=== PATIENT | male | born 1960 | race Hispanic/Latino ===

== ENCOUNTER → 2023-08-23 | Outpatient (CLI) | payer OTHER ==
[~2023-08-23] MED LIST: GADOTERATE MEGLUMINE 10 MMOL/20 ML VIAL IV ONE
== END | disposition home or self-care (01) ==
LOC: RAH 10:00
PROVIDERS: ATTEND Family Medicine
DX: M47.26 Other spondylosis with radiculopathy, lumbar region (principal); M41.86 Other forms of scoliosis, lumbar region; M43.17 Spondylolisthesis, lumbosacral region; M51.27 Other intervertebral disc displacement, lumbosacral region; M48.07 Spinal stenosis, lumbosacral region; R53.1 Weakness; M51.16 Intervertebral disc disorders with radiculopathy, lumbar region
CPT/HCPCS: 72158; A9575

== ENCOUNTER 2024-01-18 18:51 | Emergency (ER) | payer OTHER ==
[~2024-01-18] VITALS: Ht 165.1 cm; Wt 81.6 kg
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
[2024-01-18] MEDS ORDERED: METH-662 PO (19:57)
[2024-01-18] MEDS ORDERED: KETO10TA2 PO (19:57)
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
[2024-01-18] MEDS: traMADol HCL 50 MG TABLET PO ONE (20:12)
[2024-01-18 20:15] VITALS: BP 158/96; PULSE 78; RESP 18; TEMP 98.1; O2SAT 98
== END 2024-01-18 20:20 | disposition home or self-care (01) ==
LOC: EDH 18:51
DX: S39.012A Strain of muscle, fascia and tendon of lower back, initial encounter (principal); S16.1XXA Strain of muscle, fascia and tendon at neck level, initial encounter; E11.9 Type 2 diabetes mellitus without complications; I10 Essential (primary) hypertension; V89.2XXA Person injured in unspecified motor-vehicle accident, traffic, initial encounter; Y93.89 Activity, other specified; Y92.89 Other specified places as the place of occurrence of the external cause; Y99.8 Other external cause status
CPT/HCPCS: 70450; 72125; 72131; 99284

== ENCOUNTER → 2025-02-13 | Outpatient (CLI) | payer OTHER ==
[~2025-02-13] MED LIST changes: +KETO10TA2 PO; +METH-662 PO
--- NOTE | 2025-02-14 01:30 | HMCIMG ---
NAME OF THE EXAM: MRI OF THE LUMBAR SPINE WITH AND WITHOUT CONTRAST CLINICAL INFORMATION: Intervertebral disc disorder with lumbar radiculopathy. TECHNIQUE: Multiplanar, multisequence MRI of the lumbar spine was performed before and after intravenous contrast administration. For the purposes of numbering, the most inferior normal-diameter disc space is designated L5S1. No transitional lumbosacral anatomy is identified. Plain radiographs would be required to confirm vertebral numbering prior to any spine intervention. CONTRAST: Clariscan, 17 mL, administered intravenously. COMPARISON: None provided. FINDINGS: ALIGNMENT: Normal lumbar lordosis is preserved. There is grade I anterolisthesis of L5 on S1 in the setting of bilateral pars interarticularis defects. VERTEBRAL BODIES: Vertebral body height is maintained without compression deformity or destructive osseous lesion. Multilevel endplate osteophytes are present. Schmorl nodes are seen in the inferior endplate of T12 and the superior endplates of L1 and L2. DISC SPACES: Mild multilevel disc space narrowing and disc desiccation are present, most pronounced at L5S1 where disc height loss and vacuum phenomenon are noted. BONE MARROW SIGNAL: Marrow signal is normal without evidence of edema or a marrow-replacing process. SPINAL CANAL AND CONUS: The conus medullaris terminates at the L1 level with normal signal. There is no abnormal cord or leptomeningeal enhancement. PARASPINAL SOFT TISSUES: Paraspinal soft tissues are unremarkable without edema or fluid collection. SACROILIAC JOINTS: There is reduction in the bilateral sacroiliac joint spaces, compatible with degenerative change. L1L2: Moderate broad-based disc bulge effaces the ventral thecal sac. Facet hypertrophy and ligamentum flavum thickening are present. No central canal stenosis is identified. There is severe bilateral neural foraminal stenosis with impingement of the exiting L1 nerve roots. L2L3: Diffuse circumferential disc bulge effaces the ventral thecal sac. Facet and ligamentum flavum hypertrophy are present. There is moderate central canal stenosis with an AP canal diameter of approximately 12 mm. There is moderate bilateral foraminal stenosis with impingement of the exiting L2 nerve roots. L3L4: Diffuse broad-based circumferential disc bulge effaces the ventral thecal sac. Facet arthropathy and ligamentum flavum hypertrophy are seen. Severe central canal stenosis is present, with an AP canal diameter of approximately 6.8 mm, along with severe bilateral foraminal stenosis. There is impingement of the exiting L3 nerve roots and crowding of the traversing cauda equina nerve roots. L4L5: Diffuse circumferential disc bulge with disc-osteophyte complex effaces the ventral thecal sac. Facet arthropathy and ligamentum flavum hypertrophy are seen. Severe central canal stenosis is present, with an AP canal diameter of approximately 7 mm. There is severe bilateral foraminal stenosis with impingement of the exiting L4 nerve roots and crowding of the traversing nerve roots. L5S1: Disc height is reduced with vacuum phenomenon. Grade I anterolisthesis of L5 on S1 results in mild uncovering of the disc. Diffuse disc bulge with a superimposed left foraminal disc protrusion impinges the ventral thecal sac and produces severe bilateral neural foraminal stenosis, more pronounced on the left, with impingement of the exiting L5 nerve roots. Facet arthropathy and ligamentum flavum hypertrophy are present. No significant central canal stenosis is identified at this level. IMPRESSION: * Advanced multilevel lumbar spondylosis with diffuse disc desiccation and disc height loss, most pronounced at L5S1, accompanied by multilevel endplate osteophytic spurring and Schmorl nodes. * Severe multilevel neural foraminal stenosis with exiting nerve root impingement, including severe stenosis at L1L2, severe stenosis at L3L4, severe stenosis at L4L5, and severe stenosis at L5S1 (left greater than right), correlating with radiculopathy. Consideration may be given to spine surgical consultation or targeted interventional management if symptoms persist or progress. * Severe central canal stenosis at L3L4 and L4L5 with crowding of the traversing cauda equina nerve roots, placing the patient at risk for neurogenic claudication; symptoms should be monitored closely, and decompressive intervention may be appropriate in the correct clinical setting. * Grade I anterolisthesis of L5 on S1 with bilateral pars defects, contributing to severe foraminal compromise at the L5S1 level. * Degenerative sacroiliac joint space narrowing bilaterally. /[place]
== END | disposition home or self-care (01) ==
LOC: RAH 10:26
PROVIDERS: ATTEND Family Medicine
DX: M47.817 Spondylosis without myelopathy or radiculopathy, lumbosacral region (principal); M51.16 Intervertebral disc disorders with radiculopathy, lumbar region; M43.17 Spondylolisthesis, lumbosacral region; M51.379 Other intervertebral disc degeneration, lumbosacral region without mention of lumbar back pain or lower extremity pain; M48.07 Spinal stenosis, lumbosacral region; M25.78 Osteophyte, vertebrae; M53.3 Sacrococcygeal disorders, not elsewhere classified
CPT/HCPCS: 72158; A9575